=== PATIENT | male | born 1955 | race Caucasian/White ===

== ENCOUNTER 2022-11-09 17:17 | Emergency (ER) | payer MEDICARE, OTHER ==
[~2022-11-09] VITALS: Ht 165.1 cm; Wt 62.6 kg
[2022-11-09] MEDS ORDERED: OXYCODONE HCL5 MG PO (17:30)
[2022-11-09 17:36] LABS: BASOPHILS 0.5 % (0-2); EOSINOPHILS 0.2 % (0-6); HEMATOCRIT 40.8 % (35.0-50.0); HEMOGLOBIN 13.7 g/dL (12.0-18.0); LYMPHOCYTES 18.6 % (24-44); MCH 32.3 (27-36); MCHC 33.5 g/dl (30-36); MCV 96.5 fl (81-99); MONOCYTES 5.6 % (0-12); NEUTROPHILS 75.1 % (39-80); PLATELET COUNT 224 K/uL (140-440); RBC 4.22 M/ul (4.3-5.7); RDW 13.2 (10.5-15.0)
[2022-11-09 17:48] LABS: ALBUMIN 4.1 g/dL (3.4-5.0); ALBUMIN/GLOBULIN RATIO 1.08 (1.1-2.4); ANION GAP 17.5 (7-21); BILIRUBIN, TOTAL 0.9 ng/dL (0.2-1.0); BUN/CREATININE RATIO 14.95 (6.0-28.6); CALCIUM 9.1 mg/dL (8.5-10.1); CREATININE, SERUM 1.07 mg/dL (0.70-1.30); POTASSIUM 4.5 mmol/L (3.5-5.1); PROTEIN, TOTAL 7.9 g/dL (6.4-8.2)
[2022-11-09 20:05] VITALS: BP 118/83
--- NOTE | 2022-11-09 20:34 | EKG ---
[facility] [address] [place] [address] Signed Normal sinus rhythm Left anterior fascicular block Abnormal ECG No previous ECGs available Confirmed by Kenny Flores MD () on 11/09/2022 8:34:08 PM Electronically Signed By: KENNY FLORES MD 11/09/222033 PATIENT NAME: KASEYGRETCHEN COX Electrocardiogram DATE OF : 55 PHYSICIAN: KENNY FLORES MD REPORT #: [id number] REPORT IS CONFIDENTIAL AND NOT TO BE RELEASED WITHOUT AUTHORIZATION
== END 2022-11-09 20:06 | disposition home or self-care (01) ==
LOC: ED 17:17
PROVIDERS: Emergency Medicine
DX: R07.89 Other chest pain (principal); I73.9 Peripheral vascular disease, unspecified; I10 Essential (primary) hypertension; Z79.899 Other long term (current) drug therapy
CPT/HCPCS: 36415; 71045; 71046; 80053; 83735; 84484; 85025; 93005; 93010; 99285-25; A9270